=== PATIENT | male | born 1940 | race Caucasian/White ===

== ENCOUNTER 2018-07-09 08:57 | Outpatient (CLI) | payer MEDICARE, OTHER ==
--- NOTE | 2018-07-09 11:59 | MRI ---
MRI OF THE RIGHT KNEE: Date: 07-09-18 Provided Clinical History: Right knee pain. FINDINGS: The anterior cruciate ligament, posterior cruciate ligament, medial collateral ligament and lateral c ollateral ligamentous complex demonstrate an intact MR appearance, as does the extensor mechanism. Te ndinosis changes are seen involving the insertional portions of the popliteus tendon. There is complex tearing of the body and posterior horn of the lateral meniscus. The medial meniscus demonstrates no evidence for tear. There is advanced tricompartmental articular cartilage irregularity most conspicuously involving the posterior central weightbearing portions of the lateral femoral condyle. There is a mildly prominent medial plica. There is moderate knee joint effusion with Flores cyst formation. Osteophyte formation i s seen about the knee. No focal concerning regional marrow or muscular signal abnormality is evident. IMPRESSION: 1. Complex nondisplaced tear involving the body and posterior horn of the lateral meniscus. 2. 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 3. Moderate knee joint effusion with Flores cyst formation. POS: [facility]PC
== END 2018-07-09 08:58 | disposition home or self-care (01) ==
LOC: BICMRI 08:57
PROVIDERS: ATTEND Orthopaedic Surgery
DX: S83.241A Other tear of medial meniscus, current injury, right knee, initial encounter (principal); S83.271A Complex tear of lateral meniscus, current injury, right knee, initial encounter; M25.461 Effusion, right knee; M71.21 Synovial cyst of popliteal space [Baker], right knee

== ENCOUNTER 2018-08-13 14:58 | Outpatient (CLI) | payer MEDICARE ==
[2018-08-13 16:22] LABS: Hemoglobin 10.6 g/dL (14.0-18.0); Mean Corpuscular HGB CONC 31.3 g/dL (32.0-36.0); Mean Corpuscular Hemoglobin 25.4 pg (27.0-31.0); Mean Corpuscular Volume 81.3 fL (78.0-98.0); Mean Platelet Volume 8.1 fL (7.4-10.4); Platelet Count 311 thou/uL (130-400); RBC Distribution Width 15.5 % (11.5-14.5); Red Blood Cell (RBC) Count 4.17 mill/uL (4.70-6.10); White Blood Cell (WBC) Count 6.8 thou/uL (4.8-10.8)
[2018-08-13 16:24] LABS: PTT 32.6 SEC (22.9-36.1); Prothrombin Time 13.5 SEC (12.0-14.7)
[2018-08-13 16:34] LABS: Bacteria/HPF None Seen HPF (None Seen); Hyaline Casts/LPF NONE SEEN LPF (0-3 Hyaline); RBC/HPF None Seen HPF (0-3); Squamous Epithelial 0-3 HPF (0-3); WBC/HPF None Seen HPF (0-3)
[2018-08-13 16:45] LABS: Anion Gap 15 mmol/L (10-20); BUN (Urea Nitrogen) 17 mg/dL (8.4-25.7); Calc. Creatinine Clearance 0 mL/min (70-130); Calcium 9.3 mg/dL (7.8-10.44); Carbon Dioxide 26 mmol/L (23-31); Chloride 104 mmol/L (98-107); Estimated GFR-MDRD Greater than 90; Glucose 90 mg/dL (83-110); Potassium 4.7 mmol/L (3.5-5.1); Sodium 140 mmol/L (136-145)
== END 2018-08-13 14:59 | disposition home or self-care (01) ==
LOC: LABBT 14:58
PROVIDERS: ATTEND Urology
DX: Z01.818 Encounter for other preprocedural examination (principal); N47.1 Phimosis
CPT/HCPCS: 80048; 81015; 85027; 85610; 85730; 87086; 93005; 93010

== ENCOUNTER 2018-08-21 07:36 | Day surgery (SDC) | payer MEDICARE ==
[2018-08-13 15:40] VITALS: BMI 29.5
[2018-08-21] MEDS ORDERED: Bacitracin Zinc Ointment 30 gm TUBE ONE (10:08)
[2018-08-21] MEDS ORDERED: Bupivacaine 0.25% HCL 30 ML VIAL ONE (10:08)
[2018-08-21] MEDS ORDERED: Fentanyl 100 MCG/2 ML VIAL ONE (10:18)
[2018-08-21] MEDS ORDERED: Ondansetron PF 4 MG/2 ML Vial ONE (12:03)
[2018-08-21] MEDS ORDERED: PROPOFOL 200 MG/20 ML VIAL ONE (12:03)
[2018-08-21] MEDS ORDERED: ePHEDrine 50 MG/ML VIAL ONE (12:03)
[2018-08-21] MEDS ORDERED: Lidocaine 1% PF 5 ML VIAL ONE (12:03)
[2018-08-21] MEDS ORDERED: Dexamethasone 20 MG/5 ML VIAL ONE (12:03)
--- NOTE | 2018-08-21 15:46 | OP ---
DATE OF PROCEDURE: 08/21/2018 SERVICE: Urology. PREOPERATIVE DIAGNOSIS: Phimosis. POSTOPERATIVE DIAGNOSIS: Phimosis. PROCEDURE PERFORMED: Circumcision. INDICATION FOR PROCEDURE: Mr. Schwarz is a 77-year-old white male, who initially presented to me with severe phimosis. He has pain with erections and on an attempted retraction of his foreskin, he had opted for circumcision rather than attempted betamethasone cream. Risks and benefits of surgery were discussed and he has agreed to proceed forward. DESCRIPTION OF PROCEDURE: After identification of armband and verification of consent, the patient was brought back to the operating room, where he underwent general anesthesia with an LMA. He was then left in supine position and prepped and draped in the usual sterile fashion. After appropriate time-out, a mild dorsal slit was made on the penis to allow for proper retraction. The underside of the penis was then re-sterilized with Betadine and a dorsal penile nerve block was performed with 10 mL of 0.25% Marcaine plain. A circumferential incision was made beyond the coronal sulcus down to Zavala's fascia. The foreskin was then reduced and a counter incision made overlying the first incision. The intervening skin was then removed with a combination of sharp dissection and Bovie electrocautery. Meticulous hemostasis was performed in the intervening tissues underneath and once completely dry, the skin was reapproximated using 4-0 chromic interrupted fashion. Some redundant skin on the ventral aspect of the penis was excised and the defect closed with 4-0 chromic in a running fashion. Upon completion, the penis was very cosmetically pleasing. Dermabond was applied after the penis was cleaned off and once dried, Telfa compression dressing applied. The patient was then awakened, taken to PACU for recovery in stable condition. COMPLICATIONS: None. ESTIMATED BLOOD LOSS: Minimal. RETAINED TUBES AND DRAINS: None. SPECIMENS: Foreskin. DISPOSITION: The patient will be discharged home and follow up with me in 1 to 2 weeks for a postop check. Job ID: [id number]
== END 2018-08-21 14:25 | disposition home or self-care (01) ==
LOC: SDC 07:36
PROVIDERS: ATTEND Urology
PROC: 0VNTXZZ Release Prepuce, External Approach (ICD-10-PCS; principal; 2018-08-21)
DX: N47.1 Phimosis (principal); Z95.1 Presence of aortocoronary bypass graft
CPT/HCPCS: 88304; J1100; J2001; J2405; J2704; J3010; J3490; S0020

== ENCOUNTER 2018-12-24 06:50 | Observation (INO) | payer MEDICARE ==
[2018-12-23 10:49] VITALS: BMI 29.5
--- NOTE | 2018-12-23 13:14 | HP ---
HISTORY OF PRESENT ILLNESS: Mr. Schwarz is a very pleasant 78-year-old gentleman presenting for evaluation of severe neurogenic claudication. He has an MRI from [facility] that reveals severe spinal stenosis from L3-L5 that would well explain this. He has treated this conservatively with physical therapy and medications and hopes to move forward with surgery at this point. PAST MEDICAL HISTORY: Significant for coronary arterial disease. PAST SURGICAL HISTORY: Coronary arterial bypass graft. CURRENT MEDICATIONS: None. PHYSICAL EXAMINATION: GENERAL: The patient is alert, oriented x3. NEUROLOGICAL: Gait is mildly antalgic. Lower extremity motor exam is normal. ASSESSMENT: Lumbar stenosis with neurogenic claudication. PLAN: Dr. Hoffman met with the patient, reviewed imaging, advocated for L3-L5 decompression. He explained to the patient the risks, benefits, and alternatives to the procedure. The patient expressed understanding and elected to move forward with surgery as discussed. I do believe the patient is mentally competent and capable of making medical decisions for himself. We will move forward with surgery as planned. Job ID: [id number]
[2018-12-24 07:36] LABS: #Basophils 0.1 thou/uL (0.0-0.2); #Eosinphils 0.3 thou/uL (0.0-0.7); #Lymphocytes 1.7 thou/uL (1.20-3.40); #Monocytes 0.6 thou/uL (0.11-0.59); #Neutrophils 3.4 thou/uL (1.40-6.50); %Basophils 0.9 % (0.0-1.0); %Eosinophils 4.2 % (0.0-10.0); %Lymphocytes 27.9 % (21.0-51.0); Hemoglobin 13.4 g/dL (14.0-18.0); Mean Corpuscular HGB CONC 31.7 g/dL (32.0-36.0); Mean Corpuscular Volume 85.3 fL (78.0-98.0); Platelet Count 239 thou/uL (130-400); RBC Distribution Width 24.3 % (11.5-14.5); Red Blood Cell (RBC) Count 4.94 mill/uL (4.70-6.10)
[2018-12-24 07:51] LABS: Anion Gap 11 mmol/L (10-20); BUN (Urea Nitrogen) 13 mg/dL (8.4-25.7); Calc. Creatinine Clearance 105 mL/min (70-130); Calcium 9.6 mg/dL (7.8-10.44); Carbon Dioxide 28 mmol/L (23-31); Chloride 104 mmol/L (98-107); Estimated GFR-MDRD Greater than 90; Glucose 114 mg/dL (83-110); Potassium 4.3 mmol/L (3.5-5.1); Sodium 139 mmol/L (136-145)
[2018-12-24 08:07] LABS: Anisocytosis MODERATE=16-30 cells (100X) (0-5/hpf); Band 3 % (5-11); Eosinophils 6 % (0-10); Lymphocytes 27 % (21-51); MDiff Complete? YES; Monocytes 4 % (0-10); Neutrophil 60 % (42-75); Platelet Morphology Comment Appears Adequate
[2018-12-24] MEDS ORDERED: Bupivacaine HCl 0.5%/Epinephrine 1:200,000/PF 30 ml Vial ONE (08:38)
[2018-12-24] MEDS ORDERED: Fentanyl 100 MCG/2 ML VIAL ONE ×4 (08:44→12:08)
[2018-12-24] MEDS ORDERED: ceFAZolin Sodium (SDC) 2 GM/100 ML BAG ONE ×2 (08:52→17:36)
[2018-12-24] MEDS ORDERED: ePHEDrine/0.9% NaCl/PF SYRINGE 50 mg/10 ml ONE (09:54)
[2018-12-24] MEDS ORDERED: SUGAMMADEX SODIUM 200 MG/2 ML VIAL ONE (10:59)
[2018-12-24] MEDS ORDERED: Tamsulosin HCl 0.4 MG CAP ONE (12:01)
--- NOTE | 2018-12-24 12:36 | OP ---
DATE OF PROCEDURE: 12/24/2018 MACHINE LEATHER TRIMMER: Damir Peterson PA-C INDICATION: Pain. DIAGNOSIS: Lumbar stenosis and lumbar radiculopathy. PROCEDURES: L3 through L5 lumbar decompression. ANESTHESIA: General. DESCRIPTION OF PROCEDURE: The patient was brought into the operating room and placed under general anesthesia. He was flipped from the supine to prone position on operating room table. A linear incision was planned spanning L3 to L5. After prepping and draping and after a preoperative pause, the incision was created. The soft tissues were swept away from midline. A self-retaining retractor was placed for optimal exposure. After confirming the appropriate level with C-arm fluoroscopy, an Adson rongeur was used to remove the spinous process of L4 and L5 in their entirety in the inferior half of L3. High-speed cutting drill bit was used to complete the laminectomy of all of L4, all of L5, and the inferior half of L3. The laminectomy was completed using 2, 3, and 4 mm Kerrisons and was carried laterally to encompass the medial third of the facet joint bilaterally. This decompressed the central canal as well as the lateral recesses. The wound was irrigated. Hemostasis was maintained throughout. The wound was then closed in anatomic layers and a pressure dressing was applied. There were no known procedural complications. Job ID: [id number]
[2018-12-24] MEDS ORDERED: Acetaminophen 650 MG Suppository PR PRN (18:48)
[2018-12-24] MEDS ORDERED: Acetaminophen 325 MG TAB PO PRN (18:48)
[2018-12-24] MEDS ORDERED: Acetaminophen/Codeine 30-300mg Tablet PO PRN (18:48)
[2018-12-24] MEDS ORDERED: diphenhydrAMINE 25 MG CAP PO PRN (18:48)
[2018-12-24] MEDS ORDERED: Milk Of Magnesia 30 ML UDCUP PO PRN (18:48)
[2018-12-24] MEDS ORDERED: diphenhydrAMINE 50 MG/ML VIAL IVP PRN (18:48)
[2018-12-24] MEDS ORDERED: Morphine 4 MG/ML VIAL SLOW IVP PRN (18:48)
[2018-12-24] MEDS ORDERED: tiZANidine HCl 4 MG TAB PO PRN (18:50)
[2018-12-24] MEDS ORDERED: Ondansetron PF 4 MG/2 ML Vial IM PRN (18:51)
[2018-12-24] MEDS: Sodium Chloride 0.9% 1,000 ML IV SCH (19:52)
[2018-12-24] MEDS: Acetaminophen/Codeine 30-300mg Tablet PO PRN (21:08)
[2018-12-25] MEDS: CEFAZOLIN 2 GM, Admixture Fee 1 EACH in Sodium Chloride 0.9% 100 ML IVPB SCH ×2 (00:26→09:51)
[2018-12-25] MEDS ORDERED: Tamsulosin HCl 0.4 MG CAP PO SCH (06:00)
--- NOTE | 2018-12-25 08:25 | DIS ---
DATE OF ADMISSION: 12/24/2018 DATE OF DISCHARGE: 12/25/2018 HOSPITAL COURSE: Mr. Schwarz is a very pleasant gentleman 78-year-old gentleman, who was admitted to [facility] on December 24, 2018 with subsequent discharge on December 25, [address] Fransico Hoffman with the admission diagnosis and discharge diagnosis being status post lumbar laminectomy. He was admitted for persistent drainage through MAKENZIE drain, which tapered considerably overnight, where he had roughly 5 mL an hour through the drain. This was discontinued the morning after surgery, and he was deemed safe to go home. His pain was well controlled with p.r.n. medications, and he ambulated a great deal in the hallways on his own accord. No consultations were ordered. No imaging was ordered. No lab work was ordered, and he was discharged home in good condition with outpatient followup planned in 2 weeks. Job ID: [id number]
[2018-12-25] MEDS: Sodium Chloride 0.9% 1,000 ML IV SCH (08:29)
[2018-12-25] MEDS: Acetaminophen/Codeine 30-300mg Tablet PO PRN (08:34)
[2018-12-25 11:37] VITALS: BP 122/71; TEMP 98.4
== END 2018-12-25 12:15 | disposition home or self-care (01) ==
LOC: SDC 06:50 → SURG B 17:48
PROVIDERS: ADMIT Neurological Surgery; ATTEND Neurological Surgery
PROC: 0ST20ZZ Resection of Lumbar Vertebral Disc, Open Approach (ICD-10-PCS; principal; 2018-12-24)
DX: M48.062 Spinal stenosis, lumbar region with neurogenic claudication (principal); M54.16 Radiculopathy, lumbar region; I25.10 Atherosclerotic heart disease of native coronary artery without angina pectoris; Z95.1 Presence of aortocoronary bypass graft
CPT/HCPCS: 36415; 76000; 80048; 85025; 96365; 96366; 96375; G0378; J0131; J0670; J0690; J2270; J3010; J3490

== ENCOUNTER 2019-06-18 08:00 | Outpatient (CLI) | payer MEDICARE ==
[2019-06-18 09:32] LABS: Hemoglobin 13.2 g/dL (14.0-18.0); Mean Corpuscular HGB CONC 32.2 g/dL (32.0-36.0); Mean Corpuscular Hemoglobin 31.1 pg (27.0-31.0); Mean Corpuscular Volume 96.7 fL (78.0-98.0); Mean Platelet Volume 7.6 fL (7.4-10.4); Platelet Count 289 thou/uL (130-400); Red Blood Cell (RBC) Count 4.23 mill/uL (4.70-6.10); White Blood Cell (WBC) Count 6.3 thou/uL (4.8-10.8)
[2019-06-18 09:34] LABS: INR-International Normal Ratio 1.1; Prothrombin Time 13.7 SEC (12.0-14.7)
[2019-06-18 09:47] LABS: Bacteria/HPF None Seen HPF (None Seen); Bilirubin Negative (Negative); Blood, Urine Negative (Negative); Clarity Clear (Clear); Glucose, Urine (Dipstick) Normal (Negative); Leukocyte Negative Leu/uL (Negative); Nitrite Negative (Negative); Protein, Urine (Dipstick) Negative (Neg-Trace); RBC/HPF 0-3 HPF (0-3); Squamous Epithelial None Seen HPF (0-3); Urobilinogen Normal mg/dL (Less than 2); WBC/HPF 0-3 HPF (0-3)
[2019-06-18 09:54] LABS: Anion Gap 12 mmol/L (10-20); BUN (Urea Nitrogen) 13 mg/dL (8.4-25.7); Calc. Creatinine Clearance 0 mL/min (70-130); Calcium 8.9 mg/dL (7.8-10.44); Carbon Dioxide 26 mmol/L (23-31); Chloride 107 mmol/L (98-107); Estimated GFR-MDRD Greater than 90; Glucose 75 mg/dL (83-110); Potassium 4.5 mmol/L (3.5-5.1); Sodium 140 mmol/L (136-145)
== END 2019-06-18 08:01 | disposition home or self-care (01) ==
LOC: LABBT 08:00
PROVIDERS: ATTEND Orthopaedic Surgery
DX: Z01.818 Encounter for other preprocedural examination (principal); M16.11 Unilateral primary osteoarthritis, right hip
CPT/HCPCS: 80048; 81001; 85027; 85610; 87081; 93005; 93010

== ENCOUNTER 2019-06-29 08:11 | Day surgery (SDC) | payer MEDICARE ==
[2019-06-18 08:22] VITALS: BMI 29.5
[2019-06-29] MEDS ORDERED: Tranexamic Acid 1,000 MG/10 ML VIAL ONE ×2 (08:33→12:35)
[2019-06-29] MEDS ORDERED: Clindamycin/D5W 600 mg/50 ml Premix Bag ONE (08:33)
[2019-06-29] MEDS ORDERED: Sodium Chloride 0.9% 100 ML ONE (08:33)
[2019-06-29] MEDS ORDERED: Midazolam HCl 2 mg/2 ml Vial ONE (08:36)
[2019-06-29] MEDS ORDERED: Fentanyl 100 MCG/2 ML VIAL ONE ×3 (08:36→13:10)
[2019-06-29] MEDS ORDERED: Ondansetron PF 4 MG/2 ML Vial IVP PRN ×2 (09:59→10:45)
[2019-06-29] MEDS ORDERED: Promethazine HCl 25 MG/ML VIAL IM PRN ×3 (09:59→11:21)
[2019-06-29] MEDS ORDERED: traMADol HCl 50 MG TAB PO PRN ×2 (09:59)
[2019-06-29] MEDS ORDERED: Ropivacaine HCl/PF 250 ML in Premix Bag 1 BAG NERVE BLCK SCH (09:59)
[2019-06-29] MEDS ORDERED: Zolpidem Tartrate 5 MG TAB PO PRN ×2 (09:59→10:45)
[2019-06-29] MEDS ORDERED: Acetaminophen 325 MG TAB PO PRN ×2 (09:59→10:45)
[2019-06-29] MEDS ORDERED: HYDROcodone/Acetaminophen 10/325 mg Tablet PO PRN (09:59)
[2019-06-29] MEDS ORDERED: Fentanyl 100 MCG/2 ML VIAL IV PRN (09:59)
[2019-06-29] MEDS ORDERED: Vancomycin 1.5 GRAM/300 ML BAG 1.5 GM/300 ML BAG ONE (10:44)
[2019-06-29] MEDS ORDERED: diphenhydrAMINE 25 MG CAP PO PRN (10:45)
[2019-06-29] MEDS ORDERED: Tranexamic Acid 1,000 MG in Sodium Chloride 0.9% 100 ML IVPB SCH (10:45)
[2019-06-29] MEDS ORDERED: Bupivacaine PF 0.5% 30 ML VIAL ONE (11:06)
[2019-06-29] MEDS ORDERED: Promethazine HCl 25 MG/ML VIAL SLOW IVP PRN (11:21)
[2019-06-29] MEDS ORDERED: HYDROmorphone 2 MG/ML VIAL SLOW IVP PRN (11:21)
[2019-06-29] MEDS ORDERED: PACU-Morphine 4MG/ML VIAL SLOW IVP PRN (11:21)
[2019-06-29] MEDS ORDERED: Ondansetron HCl/PF 4 MG/2 ML Vial IVP PRN (11:21)
--- NOTE | 2019-06-29 13:29 | OP ---
DATE OF PROCEDURE: 06/29/2019 AIR CARGO SPECIALIST SUPERVISOR: Arpit Xiao PA-C PREOPERATIVE DIAGNOSIS: Right knee osteoarthrosis. POSTOPERATIVE DIAGNOSIS: Right knee osteoarthrosis. PROCEDURE PERFORMED: Right total knee replacement using [employer] pinless navigation. ESTIMATED BLOOD LOSS: Minimal. COMPLICATIONS: None. ANESTHESIA: The patient did have a general anesthetic as well as a preoperative block. IMPLANTS: To the right knee, Triathlon total knee system, we used a size 6 cruciate-retaining femur, we used a size 5 primary tibial baseplate, we used a 5 x 9 mm CS X3 tibial bearing, and an asymmetric 32 x 10 X3 patella. DISPOSITION: He did go to recovery room in stable condition. INDICATIONS: This is a 78-year-old male, who is active and who at this time wished to have his right knee replaced after failing all nonoperative treatment for knee arthritic pain. PROCEDURE IN DETAIL: After all appropriate consent forms were explained and signed, the patient was taken back to the operating room and at this time was given general anesthetic. Once the level of anesthesia was appropriate, a well-padded tourniquet was placed on the right leg, and the leg was then prepped and draped in standard surgical fashion. The limb was exsanguinated and tourniquet taken up to 300 mmHg. Midline incision was made with a 10 blade down through the skin and subcutaneous tissue. Bovie electrocautery was used to coagulate any brisk venous bleeding. A new blade was used to make a medial parapatellar arthrotomy. Small subperiosteal release was performed medially and excess fat pad was removed. The knee was flexed up to gain access to the femur. The femur was navigated and distal femoral resection was made. Epicondylar access was used to align our sizing jig and this was pinned in place. We used a size 6 cruciate-retaining femur. 4:1 cutting block was applied and pinned. Anterior and posterior chamfer cuts were then made. We navigated out our proximal tibia and made our proximal tibial resection. Spreaders were used to remove any posterior osteophytes off the back of the femur as well as remaining meniscal tissue. A long alignment yamileth was then used to achieve correct rotation of our tibial baseplate and we used a size 5 primary tibial baseplate was chosen. This was pinned in place. We trialed the polyethylene and we used a 5 x 9 mm CS X3 tibial bearing polyethylene gave us full extension and good stability throughout range of motion. Two towel clips and a saw were used to cut our patella. Three lug nuts were drilled and an asymmetric 32 x 10 X3 patella was trialed which sat nicely in the trochlear groove. We then drilled our femur and punched our tibia. All components were removed. The knee was thoroughly irrigated and dried. Cement was mixed into the cement gun on the back table. Components were then placed. The knee was held out in full extension until the cement had dried. All excess bone cement was removed. Multiple #2 Vicryl stitches as well as a Quill were used to close our extensor mechanism. 0 Quill followed by a running Monoderm was then used to close the skin. Surgicel glue was then used on the skin. Once this had dried, soft tissue dressing was applied to the limb, tourniquet was let down, and the toes pinked up nicely. The patient was then awakened and taken to the recovery room in stable condition. All counts were correct at the end of the case. The patient did receive preoperative IV antibiotics. The patient was injected with Marcaine for postoperative pain relief. Job ID: [id number]
[2019-06-29] MEDS ORDERED: EPHEDRINE 25 MG/5 ML SYRINGE ONE (14:36)
[2019-06-29] MEDS ORDERED: Ropivacaine 0.5% HCl/PF (150 MG/30 ML VIAL) ONE (14:36)
[2019-06-29] MEDS ORDERED: Dexamethasone 20 MG/5 ML VIAL ONE (14:36)
[2019-06-29] MEDS ORDERED: Lidocaine 1% PF 5 ML VIAL ONE (14:36)
[2019-06-29] MEDS ORDERED: Ondansetron PF 4 MG/2 ML Vial ONE (14:36)
[2019-06-29] MEDS ORDERED: Ropivacaine 0.2% HCl/PF (40 MG/20 ML VIAL) ONE (14:36)
[2019-06-29] MEDS ORDERED: PROPOFOL 200 MG/20 ML VIAL ONE (14:36)
[2019-06-29] MEDS: HYDROcodone/Acetaminophen 10/325 mg Tablet PO PRN ×2 (15:10→20:54)
[2019-06-29] MEDS: Sodium Chloride 0.9% 1,000 ML IV SCH ×2 (15:14→20:53)
[2019-06-29] MEDS: Ketorolac Tromethamine 30 MG/ML VIAL IVP SCH ×2 (15:15→17:20)
[2019-06-29] MEDS: CEFAZOLIN 2 GM in Premix Bag 1 BAG IVPB SCH (17:19)
[2019-06-29] MEDS: Ferrous Gluconate 324 MG TAB PO SCH (20:53)
[2019-06-29] MEDS: Senokot S 8.6-50 MG TAB PO SCH (20:53)
[2019-06-29] MEDS: Aspirin 81 mg Enteric Coated Tablet PO SCH (20:53)
[2019-06-29] MEDS ORDERED: Vancomycin 1.5 GRAM/300 ML BAG 1.5 GM in Premix Bag 1 BAG IVPB SCH (23:00)
[2019-06-30] MEDS: Ketorolac Tromethamine 30 MG/ML VIAL IVP SCH ×4 (00:36→18:20)
[2019-06-30] MEDS: CEFAZOLIN 2 GM in Premix Bag 1 BAG IVPB SCH (00:37)
[2019-06-30 05:47] LABS: Hemoglobin 11.3 g/dL (14.0-18.0); Mean Corpuscular Hemoglobin 33.1 pg (27.0-31.0); Mean Corpuscular Volume 97.4 fL (78.0-98.0); Mean Platelet Volume 7.8 fL (7.4-10.4); Platelet Count 247 thou/uL (130-400); RBC Distribution Width 12.6 % (11.5-14.5); Red Blood Cell (RBC) Count 3.41 mill/uL (4.70-6.10); White Blood Cell (WBC) Count 14.5 thou/uL (4.8-10.8)
[2019-06-30] MEDS: Sodium Chloride 0.9% 1,000 ML IV SCH ×2 (07:45→18:38)
[2019-06-30] MEDS: Aspirin 81 mg Enteric Coated Tablet PO SCH ×2 (09:57→20:58)
[2019-06-30] MEDS: Ferrous Gluconate 324 MG TAB PO SCH ×2 (09:58→20:58)
[2019-06-30] MEDS: Multivitamin W/ Minerals 1 TAB PO SCH (09:58)
[2019-06-30] MEDS: Senokot S 8.6-50 MG TAB PO SCH ×2 (09:58→20:58)
[2019-06-30] MEDS: HYDROcodone/Acetaminophen 10/325 mg Tablet PO PRN (20:55)
[2019-07-01] MEDS: Ketorolac Tromethamine 30 MG/ML VIAL IVP SCH ×2 (01:36→06:31)
[2019-07-01] MEDS: Sodium Chloride 0.9% 1,000 ML IV SCH (03:07)
[2019-07-01 05:17] LABS: Hemoglobin 9.4 g/dL (14.0-18.0); Mean Corpuscular HGB CONC 34.7 g/dL (32.0-36.0); Mean Corpuscular Hemoglobin 33.9 pg (27.0-31.0); Mean Corpuscular Volume 97.6 fL (78.0-98.0); Mean Platelet Volume 7.6 fL (7.4-10.4); Platelet Count 202 thou/uL (130-400); Red Blood Cell (RBC) Count 2.77 mill/uL (4.70-6.10); White Blood Cell (WBC) Count 10.5 thou/uL (4.8-10.8)
[2019-07-01 08:32] VITALS: BP 99/62; TEMP 97.6
[2019-07-01] MEDS: Ferrous Gluconate 324 MG TAB PO SCH (08:32)
[2019-07-01] MEDS: Senokot S 8.6-50 MG TAB PO SCH (08:32)
[2019-07-01] MEDS: Multivitamin W/ Minerals 1 TAB PO SCH (08:32)
[2019-07-01] MEDS: Aspirin 81 mg Enteric Coated Tablet PO SCH (08:32)
--- NOTE | 2019-07-01 10:44 | RAD ---
EXAM: 3 views of the right foot HISTORY: Foot pain COMPARISON: None FINDINGS: 3 views of the right foot shows no evidence of acute fracture or dislocation. There is thic kening of the periosteum surrounding the second metatarsal secondary to a remote healed fracture in this location. No soft tissue swelling is seen. No degenerative changes are present. IMPRESSION: No evidence of acute osseous abnormality.
== END 2019-07-01 12:45 | disposition home or self-care (01) ==
LOC: SDC 08:11 → SJJU 10:45 → SURG A 06-30 06:13 → SJJU 06-30 06:16 → SDC 07-01 12:45
PROVIDERS: ATTEND Orthopaedic Surgery
PROC: 0SRC0JZ Replacement of Right Knee Joint with Synthetic Substitute, Open Approach (ICD-10-PCS; principal; 2019-06-29)
PROC: 8E0YXBZ Computer Assisted Procedure of Lower Extremity (ICD-10-PCS; 2019-06-29)
DX: M17.11 Unilateral primary osteoarthritis, right knee (principal); I25.10 Atherosclerotic heart disease of native coronary artery without angina pectoris; Z95.1 Presence of aortocoronary bypass graft
CPT/HCPCS: 20985; 27447; 73630; 85027; 97116 ×3; 97139 ×4; 97150 ×2; 97530 ×2; 98961; C1713; C1776; 36415; J0690; J1100; J1885; J2001; J2250; J2405; J2704; J2795; J3010; J3490; S0020